=== PATIENT | female | born 1935 | race Caucasian/White ===

== ENCOUNTER → 2017-11-12 | Outpatient (CLI) | payer OTHER, BC ==
[~2017-11-12] MED LIST: ADULT LOW DOSE81 MG PO; ALPRAZOLAM 0.0.25 M1 PO; AMPYRA10 MG PO; BACLOFEN 10MG T10 M1 PO; BACLOFEN 10MG T10 MG PO; CALCIUM 600 +1 EAC1 PO; CENTRUM SILVER1 EAC1 PO; CENTRUM SILVER1 EAC4 PO; CEPHALEXIN 250250 MG PO; CEPHALEXIN 500500 M1 PO; EFFER-K 10 MEQ10 MEQ PO; ENABLEX15 MG PO; EVISTA PO; FUROSEMIDE 20 M20 MG PO; KEFLEX500 MG PO; MYRBETRIQ25 MG PO; NEURONTIN 300300 M1 PO; OMEGA-31000 MG PO; OMEPRAZOLE PO; PAROXETINE HCL40 MG PO; POTASSIUM CHLO10 ME1 PO; TRANDOLAPRIL4 MG PO; TYSABRI IV; ZOLOFT 50 MG TA50 M1 PO; ZOLOFT25 MG PO
== END ==
LOC: HYPER 06:47
DX: S81.811A Laceration without foreign body, right lower leg, initial encounter (principal); I89.0 Lymphedema, not elsewhere classified; I10 Essential (primary) hypertension; E78.00 Pure hypercholesterolemia, unspecified; L84 Corns and callosities; G35 Multiple sclerosis; K21.9 Gastro-esophageal reflux disease without esophagitis; F32.9 Major depressive disorder, single episode, unspecified; I48.0 Paroxysmal atrial fibrillation; X58.XXXA Exposure to other specified factors, initial encounter; Y93.89 Activity, other specified; Y92.89 Other specified places as the place of occurrence of the external cause; Y99.8 Other external cause status; I87.2 Venous insufficiency (chronic) (peripheral)

== ENCOUNTER → 2017-11-24 | Outpatient (CLI) | payer OTHER, BC | LOC: HYPER 06:53 | DX: S81.811D Laceration without foreign body, right lower leg, subsequent encounter (principal); G35 Multiple sclerosis; R26.9 Unspecified abnormalities of gait and mobility; I89.0 Lymphedema, not elsewhere classified; I10 Essential (primary) hypertension; K21.9 Gastro-esophageal reflux disease without esophagitis; E78.00 Pure hypercholesterolemia, unspecified; I87.2 Venous insufficiency (chronic) (peripheral); F32.9 Major depressive disorder, single episode, unspecified; I48.0 Paroxysmal atrial fibrillation; X58.XXXD Exposure to other specified factors, subsequent encounter ==

== ENCOUNTER → 2017-12-15 | Outpatient (CLI) | payer OTHER, BC | LOC: HYPER 06:58 | DX: S81.811D Laceration without foreign body, right lower leg, subsequent encounter (principal); I89.0 Lymphedema, not elsewhere classified; G35 Multiple sclerosis; K21.9 Gastro-esophageal reflux disease without esophagitis; R26.9 Unspecified abnormalities of gait and mobility; I87.2 Venous insufficiency (chronic) (peripheral); F32.9 Major depressive disorder, single episode, unspecified; I48.0 Paroxysmal atrial fibrillation; X58.XXXD Exposure to other specified factors, subsequent encounter ==

== ENCOUNTER → 2018-10-05 | Outpatient (CLI) | payer OTHER, BC | LOC: HYPER 07:04 | DX: L89.893 Pressure ulcer of other site, stage 3 (principal); S81.811A Laceration without foreign body, right lower leg, initial encounter; S81.812A Laceration without foreign body, left lower leg, initial encounter; S81.802A Unspecified open wound, left lower leg, initial encounter; S90.422A Blister (nonthermal), left great toe, initial encounter; G35 Multiple sclerosis; C34.90 Malignant neoplasm of unspecified part of unspecified bronchus or lung; C64.1 Malignant neoplasm of right kidney, except renal pelvis; E78.00 Pure hypercholesterolemia, unspecified; I10 Essential (primary) hypertension; I48.0 Paroxysmal atrial fibrillation; R26.9 Unspecified abnormalities of gait and mobility; K21.9 Gastro-esophageal reflux disease without esophagitis; F32.9 Major depressive disorder, single episode, unspecified; Z85.528 Personal history of other malignant neoplasm of kidney; Z96.642 Presence of left artificial hip joint; Z90.49 Acquired absence of other specified parts of digestive tract; W19.XXXA Unspecified fall, initial encounter; Y93.89 Activity, other specified; Y92.89 Other specified places as the place of occurrence of the external cause; Y99.8 Other external cause status ==

== ENCOUNTER → 2018-10-26 | Outpatient (CLI) | payer OTHER, BC | LOC: HYPER 10-13 13:42 | DX: S81.811D Laceration without foreign body, right lower leg, subsequent encounter (principal); S81.812D Laceration without foreign body, left lower leg, subsequent encounter; L89.893 Pressure ulcer of other site, stage 3; S90.425D Blister (nonthermal), left lesser toe(s), subsequent encounter; G35 Multiple sclerosis; I89.0 Lymphedema, not elsewhere classified; I10 Essential (primary) hypertension; C34.90 Malignant neoplasm of unspecified part of unspecified bronchus or lung; C64.1 Malignant neoplasm of right kidney, except renal pelvis; K21.9 Gastro-esophageal reflux disease without esophagitis; E78.00 Pure hypercholesterolemia, unspecified; R26.9 Unspecified abnormalities of gait and mobility; I87.2 Venous insufficiency (chronic) (peripheral); I48.0 Paroxysmal atrial fibrillation; F32.9 Major depressive disorder, single episode, unspecified; Z85.6 Personal history of leukemia; X58.XXXD Exposure to other specified factors, subsequent encounter ==

== ENCOUNTER → 2018-11-04 | Outpatient (CLI) | payer OTHER, BC | LOC: HYPER 06:49 | DX: L89.893 Pressure ulcer of other site, stage 3 (principal); L97.822 Non-pressure chronic ulcer of other part of left lower leg with fat layer exposed; L97.812 Non-pressure chronic ulcer of other part of right lower leg with fat layer exposed; S90.422D Blister (nonthermal), left great toe, subsequent encounter; I89.0 Lymphedema, not elsewhere classified; C34.90 Malignant neoplasm of unspecified part of unspecified bronchus or lung; C64.1 Malignant neoplasm of right kidney, except renal pelvis; R26.9 Unspecified abnormalities of gait and mobility; E78.00 Pure hypercholesterolemia, unspecified; G35 Multiple sclerosis; I10 Essential (primary) hypertension; I48.0 Paroxysmal atrial fibrillation; K21.9 Gastro-esophageal reflux disease without esophagitis; F32.9 Major depressive disorder, single episode, unspecified; Z85.830 Personal history of malignant neoplasm of bone; W19.XXXD Unspecified fall, subsequent encounter ==

== ENCOUNTER → 2018-11-11 | Outpatient (CLI) | payer OTHER, BC | LOC: HYPER 06:52 | DX: L89.893 Pressure ulcer of other site, stage 3 (principal); L97.822 Non-pressure chronic ulcer of other part of left lower leg with fat layer exposed; L97.812 Non-pressure chronic ulcer of other part of right lower leg with fat layer exposed; S90.425D Blister (nonthermal), left lesser toe(s), subsequent encounter; I89.0 Lymphedema, not elsewhere classified; C34.90 Malignant neoplasm of unspecified part of unspecified bronchus or lung; C64.1 Malignant neoplasm of right kidney, except renal pelvis; E78.00 Pure hypercholesterolemia, unspecified; G35 Multiple sclerosis; I10 Essential (primary) hypertension; I48.0 Paroxysmal atrial fibrillation; K21.9 Gastro-esophageal reflux disease without esophagitis; F32.9 Major depressive disorder, single episode, unspecified; Z85.830 Personal history of malignant neoplasm of bone; W19.XXXD Unspecified fall, subsequent encounter ==

== ENCOUNTER → 2018-11-16 | Outpatient (CLI) | payer OTHER, BC | LOC: HYPER 06:39 | DX: L97.822 Non-pressure chronic ulcer of other part of left lower leg with fat layer exposed (principal); L97.812 Non-pressure chronic ulcer of other part of right lower leg with fat layer exposed; L89.893 Pressure ulcer of other site, stage 3; S90.425D Blister (nonthermal), left lesser toe(s), subsequent encounter; G35 Multiple sclerosis; I89.0 Lymphedema, not elsewhere classified; C34.90 Malignant neoplasm of unspecified part of unspecified bronchus or lung; C64.1 Malignant neoplasm of right kidney, except renal pelvis; R26.9 Unspecified abnormalities of gait and mobility; I48.0 Paroxysmal atrial fibrillation; I10 Essential (primary) hypertension; K21.9 Gastro-esophageal reflux disease without esophagitis; E78.00 Pure hypercholesterolemia, unspecified; I87.2 Venous insufficiency (chronic) (peripheral); F32.9 Major depressive disorder, single episode, unspecified; Z85.53 Personal history of malignant neoplasm of renal pelvis; X58.XXXD Exposure to other specified factors, subsequent encounter ==

== ENCOUNTER → 2018-11-30 | Outpatient (CLI) | payer OTHER, BC | LOC: HYPER 06:39 | DX: L97.822 Non-pressure chronic ulcer of other part of left lower leg with fat layer exposed (principal); L97.812 Non-pressure chronic ulcer of other part of right lower leg with fat layer exposed; L89.893 Pressure ulcer of other site, stage 3; S90.422D Blister (nonthermal), left great toe, subsequent encounter; I89.0 Lymphedema, not elsewhere classified; C34.90 Malignant neoplasm of unspecified part of unspecified bronchus or lung; C64.1 Malignant neoplasm of right kidney, except renal pelvis; I10 Essential (primary) hypertension; K21.9 Gastro-esophageal reflux disease without esophagitis; I48.0 Paroxysmal atrial fibrillation; G35 Multiple sclerosis; R26.9 Unspecified abnormalities of gait and mobility; R21 Rash and other nonspecific skin eruption; E78.00 Pure hypercholesterolemia, unspecified; D64.9 Anemia, unspecified; F32.9 Major depressive disorder, single episode, unspecified; Z85.53 Personal history of malignant neoplasm of renal pelvis; X58.XXXD Exposure to other specified factors, subsequent encounter ==

== ENCOUNTER → 2018-12-08 | Outpatient (CLI) | payer OTHER, BC ==
[~2018-12-08] MED LIST changes: +MACROBID 100 M100 M1 PO
== END ==
LOC: HYPER 06:29
DX: L89.153 Pressure ulcer of sacral region, stage 3 (principal); L89.323 Pressure ulcer of left buttock, stage 3; L89.313 Pressure ulcer of right buttock, stage 3; L97.812 Non-pressure chronic ulcer of other part of right lower leg with fat layer exposed; L97.822 Non-pressure chronic ulcer of other part of left lower leg with fat layer exposed; L89.893 Pressure ulcer of other site, stage 3; S90.425D Blister (nonthermal), left lesser toe(s), subsequent encounter; I10 Essential (primary) hypertension; I89.0 Lymphedema, not elsewhere classified; R26.9 Unspecified abnormalities of gait and mobility; C34.90 Malignant neoplasm of unspecified part of unspecified bronchus or lung; C64.1 Malignant neoplasm of right kidney, except renal pelvis; K21.9 Gastro-esophageal reflux disease without esophagitis; I48.0 Paroxysmal atrial fibrillation; E78.00 Pure hypercholesterolemia, unspecified; D64.9 Anemia, unspecified; I87.2 Venous insufficiency (chronic) (peripheral); F32.9 Major depressive disorder, single episode, unspecified; G35 Multiple sclerosis; Z85.53 Personal history of malignant neoplasm of renal pelvis; X58.XXXD Exposure to other specified factors, subsequent encounter

== ENCOUNTER → 2018-12-29 | Outpatient (CLI) | payer OTHER, BC | LOC: HYPER 12-22 07:15 | DX: L97.822 Non-pressure chronic ulcer of other part of left lower leg with fat layer exposed (principal); L97.812 Non-pressure chronic ulcer of other part of right lower leg with fat layer exposed; L89.153 Pressure ulcer of sacral region, stage 3; L89.323 Pressure ulcer of left buttock, stage 3; L89.313 Pressure ulcer of right buttock, stage 3; L89.893 Pressure ulcer of other site, stage 3; I10 Essential (primary) hypertension; I87.2 Venous insufficiency (chronic) (peripheral); I48.0 Paroxysmal atrial fibrillation; G35 Multiple sclerosis; C34.90 Malignant neoplasm of unspecified part of unspecified bronchus or lung; C64.1 Malignant neoplasm of right kidney, except renal pelvis; I89.0 Lymphedema, not elsewhere classified; K21.9 Gastro-esophageal reflux disease without esophagitis; E78.00 Pure hypercholesterolemia, unspecified; R26.9 Unspecified abnormalities of gait and mobility; R21 Rash and other nonspecific skin eruption; F32.9 Major depressive disorder, single episode, unspecified; Z85.53 Personal history of malignant neoplasm of renal pelvis ==

== ENCOUNTER → 2019-01-12 | Outpatient (CLI) | payer OTHER, BC | LOC: HYPER 01-05 06:40 | DX: L97.812 Non-pressure chronic ulcer of other part of right lower leg with fat layer exposed (principal); L97.822 Non-pressure chronic ulcer of other part of left lower leg with fat layer exposed; L89.153 Pressure ulcer of sacral region, stage 3; L89.323 Pressure ulcer of left buttock, stage 3; L89.313 Pressure ulcer of right buttock, stage 3; I89.0 Lymphedema, not elsewhere classified; I10 Essential (primary) hypertension; G35 Multiple sclerosis; C34.90 Malignant neoplasm of unspecified part of unspecified bronchus or lung; C64.1 Malignant neoplasm of right kidney, except renal pelvis; L89.893 Pressure ulcer of other site, stage 3; E78.00 Pure hypercholesterolemia, unspecified; I87.2 Venous insufficiency (chronic) (peripheral); I48.0 Paroxysmal atrial fibrillation; K21.9 Gastro-esophageal reflux disease without esophagitis; R26.9 Unspecified abnormalities of gait and mobility; F32.9 Major depressive disorder, single episode, unspecified; Z85.53 Personal history of malignant neoplasm of renal pelvis ==